=== PATIENT | male | born 1980 | race Asian ===

== ENCOUNTER 2019-04-01 20:35 | Emergency (ER) | payer BC ==
[~2019-04-01] VITALS: Ht 165.1 cm; Wt 59.0 kg
[2019-04-01 20:45] VITALS: BP_SYST 121
[2019-04-02 00:30] VITALS: BP_SYST 121
== END 2019-04-02 00:30 | disposition home or self-care (01) ==
LOC: SED 20:35
DX: S09.93XA Unspecified injury of face, initial encounter (principal); X50.9XXA Other and unspecified overexertion or strenuous movements or postures, initial encounter; Y93.75 Activity, martial arts; Y92.89 Other specified places as the place of occurrence of the external cause; Y99.8 Other external cause status
CPT/HCPCS: 71046-TC; 71100; 99283